=== PATIENT | male | born 1935 | race Caucasian/White ===

== ENCOUNTER 2016-11-20 08:51 | Day surgery (SDC) | payer MEDICARE, OTHER ==
--- NOTE | ~2016-11-20 | CN ---
Consultation Report [facility] [address] [facility] [facility] [place]. [address] NAME: CARYN HUITRON : 35 STATUS : [facility]#: [id number] AGE: 81 ADM/REG DATE : 11/20/16 MR#: [id number] REPORT SERV DATE: 11/26/16 DICTATED BY: FAREED LEWIS DATE: 11/26/16 REPORT STATUS : Draft TRANSCRIBED BY: MODL DATE: 11/26/16 CONSULTATION REPORT DATE OF CONSULTATION: Dear Dr. Rodrigez and Dr. Jeffrey Zaragoza: Thank you for requesting my opinion regarding evaluation and management of Mr. Caryn Huitron's spiculated nodular density in the right upper lobe, pleural-based density in the left upper lobe, and mediastinal lymphadenopathy. Mr. Huitron is a pleasant 81-year-old gentleman with a significant past medical history of significant left main disease, COPD, basal cell skin cancer, previous pneumonia, and AAA, who presents to [facility] for formal evaluation of an abnormal PET-CT scan. CT scan of the chest on 10/05/2016, demonstrated spiculated nodular densities in the right upper lobe and a regular pleural- based density in the left upper lobe, and these may be fibrotic, although neoplasm could not be excluded. A spiculated linear density was also noted in the lateral right upper lobe, which was new. A PET-CT scan was recommended. Subsequent PET scan on 10/16/2016 demonstrated multiple bilateral indeterminate suspicious FDG avid pulmonary nodules with SUV max ranging between 2.7 and 5.2. Options for biopsy were recommended, either a percutaneous attempt into the left upper lobe subpleural nodule or central left upper lobe nodules by endobronchial approach or a repeat CT scan of the chest. The patient also had in addition to the final reading mediastinal lymphadenopathy that appeared to be suspicious. The patient states that he has had some chronic shortness of breath, moderate in nature, well localized to the chest, nonradiating with no significant alleviating or exacerbating factors. The patient finds it difficult to walk up a flight of stairs or greater than 100 feet. REVIEW OF SYSTEMS: A detailed 14-point review of systems was completed. Pertinent positives and negatives are listed above. PAST MEDICAL HISTORY: 1. Severe COPD. 2. Coronary artery disease. 3. Prior history of acute kidney injury thought to be secondary to an SHIN inhibitor or hydrochlorothiazide. 4. Previous basal cell resection. 5. History of pneumonia. 6. History of CAD. 7. Recent cardiac catheterization demonstrating severe left main disease. 8. AAA. PAST SURGICAL HISTORY: Status post hemorrhoidectomy. Consultation Report [facility] [address] [place]. [address] NAME: CARYN HUITRON : 35 STATUS : [facility]#: [id number] AGE: 81 ADM/REG DATE : 11/20/16 MR#: [id number] REPORT SERV DATE: 11/26/16 DICTATED BY: FAREED LEWIS DATE: 11/26/16 REPORT STATUS : Draft TRANSCRIBED BY: MODDean DATE: 11/26/16 SOCIAL HISTORY: The patient smoked for greater than [id number]. He continues to still smoke. He denies any significant alcohol or illicit drug abuse. FAMILY HISTORY: Coronary artery disease. ALLERGIES: TYLENOL. HOME MEDICATIONS: Reviewed and located in the paper chart. PHYSICAL EXAMINATION: VITAL SIGNS: Reviewed and located in the paper chart. GENERAL: Frail, elderly gentleman, in no acute distress, but visibly dyspneic with any kind of exertion including transferring from bed to chair. HEENT: Normocephalic, atraumatic. Pupils are equal, round, and reactive to light and accommodation. Posterior oropharynx is clear. NECK: No JVD. No LAD. Trachea midline. CARDIOVASCULAR: Regular rate and rhythm. S1, S2 present. LUNGS: Diminished breath sounds bilaterally. ABDOMEN: Nontender, nondistended. Soft. Positive bowel sounds. EXTREMITIES: No clubbing, cyanosis, or edema. SKIN: No new rashes, lesions, or ulcers. PSYCHIATRIC: Alert and oriented x3. Appropriate mood and affect. Appropriate insight and judgment. NEUROLOGIC: 5/5 strength in upper and lower extremities. Cranial nerves 2 through 12 intact. Gait not tested. DTRs not performed. DIAGNOSTIC STUDIES: PET-CT scan on 10/16/2016 was personally reviewed by me. Multiple bilateral indeterminate suspicious FDG avid pulmonary nodules with mediastinal lymphadenopathy noted. This PET-CT scan has been personally reviewed by me, and I agree with the above interpretation. ASSESSMENT AND PLAN: Mr. Caryn Huitron is a pleasant 81-year-old gentleman with a significant past medical history of end-stage chronic obstructive pulmonary disease, severe and severe left main disease, who presents to [facility] with a history of shortness of breath, weight loss, and abnormal PET-CT scan. PET-CT scan demonstrates bilateral pulmonary nodules and mediastinal lymphadenopathy with lesions which are FDG avid. A clinical and radiographic presentation is most concerning for advanced stage primary bronchogenic carcinoma. We discussed in detail potential options including repeat imaging, CT-guided needle biopsy, thoracic surgical biopsy, or endobronchial ultrasound bronchoscopy. After careful discussion of the risks, benefits, and alternatives to each of these procedures, and a lengthy discussion with anesthesia, the patient declined to proceed with biopsy. Anesthesiologist stated that there was approximately a 10% chance of major complications. Consultation Report [facility] [address] [facility] [place]. [address] NAME: CARYN HUITRON : 35 STATUS : [facility]#: [id number] AGE: 81 ADM/REG DATE : 11/20/16 MR#: [id number] REPORT SERV DATE: 11/26/16 DICTATED BY: FAREED LEWIS DATE: 11/26/16 REPORT STATUS : Draft TRANSCRIBED BY: MODL DATE: 11/26/16 At this point, the patient will decline further followup with me, but would like to see a medical oncologist for further discussion. At this point, the patient declined any further biopsy. He would like to discuss his care with Medical Oncologist on [address] . A summary of my recommendations are as follows: 1. We will make arrangements for medical oncology consultation. 2. The patient declined biopsy due to the risks of anesthesia. 3. The patient has been recommended to follow up with [facility]. However, he seems disinterested at this time. Thank you for allowing me to participate in Mr. Huitron's care. BILL/CHRISTINA Fareed Lewis M.D. / [id number] CC: Dragan Edgar M.D.
[~2016-11-20 08:51] MED LIST: ADVAIR250 INH; ASAB PO; ATV1 PO; CRESTOR5 MG PO; FLOMAX4 PO; LEVAQUIN750 MG PO; LIPITOR40 PO; MINITRAN0.2 MG/HR TOP; NITROSTAT0.4 MG SL; NORCO1 TA1 PO; NORCO1 TA2 PO; NORV5 PO; PLAVIX PO; PRILOSEC40 MG PO; PRIN10 PO; PRIN20 PO; PROVENTSOL INH; PROVHFA INH; SPIRIVA INH; TOPXL50 PO; TRAZ100 PO; ZESTORETIC1 TA1 PO; ZOL50 PO
[2016-11-20 09:21] LABS: INTERNATIONAL NORMAL RATI 1.2 UNITS (-); PROTIME (NOT ORD) 14.7 SEC (12.0-14.5)
== END 2016-11-20 23:59 | disposition home health service (06) ==
LOC: DMU 08:51
PROVIDERS: Anesthesiology
DX: Z53.9 Procedure and treatment not carried out, unspecified reason (principal); J44.9 Chronic obstructive pulmonary disease, unspecified; I73.9 Peripheral vascular disease, unspecified; I25.10 Atherosclerotic heart disease of native coronary artery without angina pectoris; I10 Essential (primary) hypertension; I25.2 Old myocardial infarction; M19.90 Unspecified osteoarthritis, unspecified site; K21.9 Gastro-esophageal reflux disease without esophagitis; E78.00 Pure hypercholesterolemia, unspecified; F17.210 Nicotine dependence, cigarettes, uncomplicated; Z79.82 Long term (current) use of aspirin; Z79.899 Other long term (current) drug therapy; Z87.442 Personal history of urinary calculi; Z98.890 Other specified postprocedural states
CPT/HCPCS: 82962; 85610; 85730; J3010